=== PATIENT | male | born 1950 | race Caucasian/White ===

== ENCOUNTER 2021-04-08 18:11 | Inpatient (IN) | payer OTHER, MEDICAID, SELFPAY ==
[~2021-04-08] VITALS: Ht 175.3 cm; Wt 94.9 kg
--- NOTE | 2021-04-08 18:15 | NUR ---
Patient to ER bed 7 to gown for evaluation. Side rails up. Report given to ABBY DHILLON.
--- NOTE | 2021-04-08 18:25 | NUR ---
ER DR. BARAJAS AT THE BEDSIDE EXAMINING PT
[2021-04-08 18:26] VITALS: BP_SYST 162
--- NOTE | 2021-04-08 18:27 | NUR ---
PER FAMILY PT HAS HX OF FLUID AROUND THE HEART 1 MONTH AGO AT [place] AND HX CHF.
[2021-04-08] MEDS ORDERED: cefTRIAXone 1 GM IVPB PREMIX 50 ML IV ONE (18:30)
--- NOTE | 2021-04-08 18:30 | NUR ---
PT BIB FAMILY FROM HOME, WORSENING SOB FOR 1 HOUR PRIOR TO ARRIVAL. PRESENTS DIAPHRETIC, ANXIOUS, HYPERTENSIVE, TACHYCARDIC, RESTLESS.
[2021-04-08 18:42] LABS: BASOPHILS # (AUTO) 0.1 K/uL (0.0-0.2); BASOPHILS % (AUTO) 0.5 % (0.0-2.0); EOSINOPHILS # (AUTO) 0.1 K/uL (0.0-0.4); EOSINOPHILS % (AUTO) 0.8 % (0.0-4.0); HEMATOCRIT 42.2 % (36-54); HEMOGLOBIN 13.4 g/dL (14.0-18.0); LYMPHOCYTES % (AUTO) 14.7 % (20.5-51.5); MEAN CORPUSCULAR HEMOGLOBIN 25 pg (27-31); MEAN CORPUSCULAR HGB CONC 32 % (32-36); MEAN CORPUSCULAR VOLUME 79 fL (79.0-98.0); MONOCYTES # (AUTO) 0.9 K/uL (0.0-1.0); MONOCYTES % (AUTO) 6.7 % (1.7-9.3); NEUTROPHILS # (AUTO) 10.5 K/uL (1.8-7.7); NEUTROPHILS % (AUTO) 77.3 % (40.0-70.0); PLATELET COUNT (AUTO) 335 K/uL (130-430); RED BLOOD CELL COUNT(AUTO) 5.32 MIL/uL (4.2-6.2); RED CELL DISTRIBUTION WIDTH 15.9 % (9.0-15.0); WHITE BLOOD COUNT (AUTO) 13.6 K/uL (4.8-10.8)
[2021-04-08 18:48] LABS: CALCIUM 8.7 mg/dL (8.4-11.0); CREATININE 1.26 mg/dL (0.55-1.30); POTASSIUM 4.5 mmol/L (3.5-5.1)
[2021-04-08 18:53] LABS: BILIRUBIN,URINE NEGATIVE (NEGATIVE); BLOOD, URINE 1+ (NEGATIVE); CLARITY/URINE CLEAR (CLEAR); COLOR,URINE YELLOW (YELLOW); GLUCOSE,URINE NEGATIVE (NEGATIVE); KETONES,URINE NEGATIVE (NEGATIVE); LEUKOCYTE ESTERASE ,URINE NEGATIVE (NEGATIVE); NITRITE, URINE NEGATIVE (NEGATIVE); PH,URINE 5.5 (5.0-8.0); PROTEIN URINE 2+ (NEGATIVE); UROBILINOGEN,URINE 0.2 (0.2-1.0)
[2021-04-08 18:54] LABS: ALBUMIN 3.5 g/dL (3.4-4.8); TOTAL BILIRUBIN 0.7 mg/dL (0.0-1.0)
[2021-04-08 19:08] LABS: BACTERIA,URINE FEW /HPF (None Seen); WBC,URINE 0-3 /HPF (0-3)
--- NOTE | 2021-04-08 19:11 | NUR ---
REPORT GIVEN TO ALEJO BARRY FOR CONTINUING CARE
--- NOTE | 2021-04-08 19:28 | NUR ---
CXR at bedside.
[2021-04-08] MEDS ORDERED: LISI-209 PO (19:30)
[2021-04-08] MEDS ORDERED: FURO-149 PO (19:30)
[2021-04-08] MEDS ORDERED: METO50TA7 PO (19:30)
[2021-04-08] MEDS ORDERED: ROSU20TA2 PO (19:30)
[2021-04-08] MEDS ORDERED: POTA20TA83 PO (19:30)
[2021-04-08] MEDS ORDERED: WARF-66 PO (19:30)
--- NOTE | 2021-04-08 19:30 | NUR ---
Medication reconciliation completed with information provided by patient's family (bottles medications). Any prior medication reconciliation on file was reviewed and corrected.
[2021-04-08] MEDS ORDERED: FUROSEMIDE 40 MG/4 ML VIAL IVP ONE (19:45)
[2021-04-08] MEDS ORDERED: LORazepam 2 MG/ML VIAL IVP ONE (19:45)
[2021-04-08] MEDS ORDERED: LORazepam 2 MG/ML VIAL ONE (19:48)
[2021-04-08] MEDS ORDERED: FUROSEMIDE 40 MG/4 ML VIAL ONE (19:49)
--- NOTE | 2021-04-08 19:54 | NUR ---
ER Dr. Amin at bedside examining patient.
--- NOTE | 2021-04-08 20:31 | NUR ---
Change Oxygen Mask 15 L/min to [place] 10 L/min, HR 166 , Oxygen sat 94 %
[2021-04-08 20:35] LABS: INR 3.1 (0.80-1.20)
[2021-04-08 20:46] LABS: PROTHROMBIN TIME 31.4 SECS (9.5-12.5)
--- NOTE | 2021-04-08 21:19 | NUR ---
Patient able to sleep, Oxygen sat 94 %, [place] 10 L/min
[2021-04-08] MEDS ORDERED: DILTIAZEM HCL 25 MG/5 ML VIAL IVP ONE (22:15)
--- NOTE | 2021-04-08 22:39 | NUR ---
After given Diltiazem 25 mg IV - HR 107
--- NOTE | 2021-04-08 23:41 | NUR ---
RT at bedside to set up oxymizer 6-10 L/min- Oxygen sat 92 %
[2021-04-08] MEDS ORDERED: D5/0.45 NS 1,000 ML IV SCH (23:45)
[2021-04-09] VITALS (11 sets, daily range): BP systolic 93–128
--- NOTE | 2021-04-09 00:36 | NUR ---
Patient is sleeping, HR 111, Oxygen sat 95 % , Oxymizer 10 L/Min, FiO2 72 %
--- NOTE | 2021-04-09 01:48 | NUR ---
MRSA swabs collected and sent to lab.
--- NOTE | 2021-04-09 02:08 | NUR ---
Patient will be admitted to care of Dr. Lazar. Admitted to ICU unit. Will go to room 8. Belongings list completed. Complete and up to date summary report printed. SBAR report to be given at bedside with opportunity for questions.
--- NOTE | 2021-04-09 02:35 | NUR ---
ADMISSION NOTE PT RECEIVED FROM ER VIA [facility]. REPORT RECEIVED FROM PRISON CLASSIFICATION COUNSELOR. PT AAOX4, RESPONDING TO VERBAL STIMULI. PT IS PRIMARILY CROATIAN SPEAKING. PT ON 10L OXIMIZER. AFIB ON MONITOR. RAC 20G PATENT AND INTACT. PT DENIES ANY PAIN OR DISCOMFORT AT THIS TIME. SAFETY PRECAUTIONS IN PLACE. WILL CONTINUE TO MONTIOR PT.
--- NOTE | 2021-04-09 03:00 | NUR ---
PT STATES HE IS HUNGRY SNACKS PROVIDED.
--- NOTE | 2021-04-09 05:22 | NUR ---
CONSULTATION CALLED/PAGED DR. GALVEZ [phone] PULMONOLOGY HYPOXIA, INFLUENZA B SPOKE WITH LAWRENCE
--- NOTE | 2021-04-09 05:31 | NUR ---
CONSULTATION CALLED/PAGED DR. ALVAREZ [phone] CARDIOLOGY AFIB SPOKE WITH LAWRENCE
[2021-04-09 07:31] LABS: BASOPHILS % (AUTO) 0.3 % (0.0-2.0); EOSINOPHILS % (AUTO) 0.1 % (0.0-4.0); HEMATOCRIT 41.3 % (36-54); HEMOGLOBIN 13.3 g/dL (14.0-18.0); LYMPHOCYTES # (AUTO) 1.1 K/uL (1.0-5.5); LYMPHOCYTES % (AUTO) 8.3 % (20.5-51.5); MEAN CORPUSCULAR HEMOGLOBIN 26 pg (27-31); MEAN CORPUSCULAR HGB CONC 32 % (32-36); MEAN CORPUSCULAR VOLUME 79 fL (79.0-98.0); MONOCYTES # (AUTO) 0.9 K/uL (0.0-1.0); MONOCYTES % (AUTO) 6.7 % (1.7-9.3); NEUTROPHILS # (AUTO) 11.2 K/uL (1.8-7.7); NEUTROPHILS % (AUTO) 84.6 % (40.0-70.0); PLATELET COUNT (AUTO) 299 K/uL (130-430); RED BLOOD CELL COUNT(AUTO) 5.21 MIL/uL (4.2-6.2); RED CELL DISTRIBUTION WIDTH 15.7 % (9.0-15.0); WHITE BLOOD COUNT (AUTO) 13.2 K/uL (4.8-10.8)
[2021-04-09 09:03] LABS: ALBUMIN 2.8 g/dL (3.4-4.8); CALCIUM 7.8 mg/dL (8.4-11.0); CREATININE 1.29 mg/dL (0.55-1.30); POTASSIUM 4.1 mmol/L (3.5-5.1); TOTAL BILIRUBIN 0.4 mg/dL (0.0-1.0)
[2021-04-09] MEDS ORDERED: METOPROLOL SUCCINATE 50 MG TAB.SR.24H (TOPROL XL) PO ONE (09:15)
[2021-04-09] MEDS: AZITHROMYCIN 500 MG in NS 250 ML IV SCH (09:41)
[2021-04-09 10:36] LABS: INR 2.8 (0.80-1.20); PROTHROMBIN TIME 28.8 SECS (9.5-12.5)
--- NOTE | 2021-04-09 10:41 | NUR ---
Nutrition Update Reza Scale 17 noted. Pt admitted for hypoxia, influenza B, atr fibr, 2 gm Na. Diet: 2 gm Na BMI: 30.9 kg/m2 RD to follow per nutrition care standards.
--- NOTE | 2021-04-09 12:30 | NUR ---
PT TRANSFERRED TO [facility] IN ZERO DISTRESS/PT REPORT GIVEN, ALL QUESTIONS ANSWERED/PT AMBULATED TO WHEELCHAIR WITHOUT ASSIST, PT MD ALERTED DUE TO PT SCANT BLOOD IN SPUTUM PT NERVOUS AND ANXIOUS//MW
--- NOTE | 2021-04-09 13:00 | NUR ---
RECEIVED PT FRON ICU. PT IS AAO, ON O2 10 LI VIA OXIMIZER, VITALS WNO. NO S/S OF PAIN. WILL CONT TO MONITOR.
[2021-04-09] MEDS ORDERED: RIVAROXABAN 10 MG TABLET PO ONE (18:00)
--- NOTE | 2021-04-09 19:15 | NUR ---
OPENING NOTE RECEIVED REPORT FROM DAYSHIFT NURSE. PATIENT RECEIVED LYING IN BED, AWAKE, WATCHING TV, NO S/S OF ACUTE DISTRESS. BREATHING IS EVEN AND UNLABORED, HOB RAISED, OXYMIZER ATTACHED PROPERLY, ON 10L OF OXYGEN. IV SITE IS PATENT, NO SIGNS OF INFILTRATION OR INFECTION NOTED. CALL LIGHT WITH PATIENT. PATIENT DENIES PAIN AT THIS TIME. BED IS LOCKED AND AT LOWEST POSITION. WILL CONTINUE TO MONITOR.
--- NOTE | 2021-04-09 19:24 | NUR ---
pt endorsed to night nurse. all needs met and attended to. pt's hr elevated. when moving. requested pt to go back to bed. endorsed to night nurse to monitor heart rate.
--- NOTE | 2021-04-09 20:01 | NUR ---
PAGED DR KIM GUY AT [phone] SPOKE WITH DORITA.
[2021-04-09] MEDS ORDERED: METOPROLOL SUCCINATE 25 MG TAB.SR.24H (TOPROL XL) PO ONE (20:15)
[2021-04-09] MEDS: FUROSEMIDE 40 MG/4 ML VIAL IVP SCH (20:39)
--- NOTE | 2021-04-09 23:59 | NUR ---
DR GALVEZ AT BEDSIDE ASSESSING PATIENT.
[2021-04-10 00:33] VITALS: BP_SYST 103
[2021-04-10] MEDS ORDERED: ALBUTEROL SULFATE 0.083% 2.5 MG/3 ML VIAL.NEB INH PRN (00:45)
--- NOTE | 2021-04-10 06:11 | NUR ---
CLOSING NOTE PATIENT IN BED, RESTING AT THIS TIME. NO S/S OF ACUTE DISTRESS. BREATHING EVEN AND UNLABORED. HOB RAISED. OXYMIZER ATTACHED PROPERLY, ON 10L OF OXYGEN. IV SITE PATENT, NO SIGNS OF INFILTRATION OR INFECTION NOTED. ALL NEEDS MET THROUGHOUT SHIFT. FALL, SAFETY, AND ISOLATION PRECAUTIONS MAINTAINED THROUGHOUT SHIFT. WILL CONTINUE TO MONITOR UNTIL PATIENT CARE IS ENDORSED TO ONCOMING DAYSHIFT NURSE.
[2021-04-10 07:07] LABS: ALBUMIN 2.8 g/dL (3.4-4.8); CALCIUM 8.4 mg/dL (8.4-11.0); CREATININE 1.12 mg/dL (0.55-1.30); POTASSIUM 3.8 mmol/L (3.5-5.1); TOTAL BILIRUBIN 0.9 mg/dL (0.0-1.0)
--- NOTE | 2021-04-10 07:40 | NUR ---
OPENING NOTE Received report from night nurse. Patient is alert and oriented x4. On oximizer at 10L and tolerating well with no signs of shortness of breath noted. IV is patent, saline locked. Bed locked and in lowest position. Call light within reach. Contact and droplet precautions remain in place. Will continue to monitor.
[2021-04-10 07:48] LABS: BASOPHILS % (AUTO) 0.3 % (0.0-2.0); EOSINOPHILS % (AUTO) 0.4 % (0.0-4.0); HEMATOCRIT 38.9 % (36-54); HEMOGLOBIN 12.2 g/dL (14.0-18.0); LYMPHOCYTES # (AUTO) 1.2 K/uL (1.0-5.5); LYMPHOCYTES % (AUTO) 12.7 % (20.5-51.5); MEAN CORPUSCULAR HEMOGLOBIN 25 pg (27-31); MEAN CORPUSCULAR HGB CONC 31 % (32-36); MEAN CORPUSCULAR VOLUME 79 fL (79.0-98.0); MONOCYTES # (AUTO) 0.8 K/uL (0.0-1.0); MONOCYTES % (AUTO) 8.1 % (1.7-9.3); NEUTROPHILS # (AUTO) 7.4 K/uL (1.8-7.7); NEUTROPHILS % (AUTO) 78.5 % (40.0-70.0); PLATELET COUNT (AUTO) 269 K/uL (130-430); RED CELL DISTRIBUTION WIDTH 15.3 % (9.0-15.0); WHITE BLOOD COUNT (AUTO) 9.4 K/uL (4.8-10.8)
[2021-04-10 08:00] VITALS: BP_SYST 133
[2021-04-10] MEDS: FUROSEMIDE 40 MG/4 ML VIAL IVP SCH ×2 (08:51→21:59)
[2021-04-10] MEDS: AZITHROMYCIN 500 MG in NS 250 ML IV SCH (08:52)
[2021-04-10] MEDS: POTASSIUM CHLORIDE 20 MEQ TAB.PRT.SR PO SCH (08:52)
[2021-04-10] MEDS: ATORVASTATIN 20 MG TABLET PO SCH (08:53)
[2021-04-10] MEDS ORDERED: ROSUVASTATIN CALCIUM 5 MG/TAB (CRESTOR) PO SCH (09:00)
[2021-04-10] MEDS ORDERED: METOPROLOL SUCCINATE 50 MG TAB.SR.24H (TOPROL XL) PO SCH (09:00)
[2021-04-10 09:37] LABS: PROTHROMBIN TIME 20.5 SECS (9.5-12.5)
--- NOTE | 2021-04-10 10:34 | NUR ---
DR. ALVAREZ ROUNDS INFORMED DR. ALVAREZ OF HR FROM 120S- 160S. MD TO SEE PATIENT. SPOKE WITH PATIENT USING ART SALES CONSULTANT. WILL CARRY OUT ANY NEW ORDERS.
[2021-04-10 16:00] VITALS: BP_SYST 111
[2021-04-10] MEDS: WARFARIN SODIUM 3 MG TABLET PO SCH (17:38)
[2021-04-10] MEDS ORDERED: WARFARIN SODIUM 2 MG TABLET PO SCH ×2 (18:00)
--- NOTE | 2021-04-10 18:32 | NUR ---
CLOSING NOTE Patient currently eating dinner in chair. Respirations remain even and non-labored. Patient is on 10 L Oxymizer and tolerating well with no signs of distress. IV site remains patent and saline-locked. Bed in lowest position and call light is within reach. Will endorse to overnight associate RN.
--- NOTE | 2021-04-10 19:30 | NUR ---
Report received from Ester DHILLON. Pt is a/o x4, Turkmen speaking with some Chinese. Calls daughter to translate for him as needed. VS stable, Afib uncontrolled on tele, denies any pain. Ambulates, and up without assist from bed to chair. IV was leaking. Established new iv to left forearm, #20 gauge. Pt tolerated. Lasix iv will be given as ordered. Assuming care for patient.
[2021-04-10 19:51] VITALS: BP_SYST 129
[2021-04-10] MEDS: METOPROLOL SUCCINATE 50 MG TAB.SR.24H (TOPROL XL) PO SCH (21:58)
--- NOTE | 2021-04-10 22:00 | NUR ---
Pt sitting up on chair watching tv. No significant changes. Will continue to monitor.
[2021-04-11 00:40] VITALS: BP_SYST 132
--- NOTE | 2021-04-11 06:58 | NUR ---
Pt is awake, remains uncontrolled afib, denies any pain, no acute distress noted.
[2021-04-11 08:00] VITALS: BP_SYST 123
[2021-04-11 09:12] LABS: INR 1.7 (0.80-1.20); PROTHROMBIN TIME 17.7 SECS (9.5-12.5)
[2021-04-11] MEDS: ATORVASTATIN 20 MG TABLET PO SCH (09:16)
[2021-04-11] MEDS: POTASSIUM CHLORIDE 20 MEQ TAB.PRT.SR PO SCH (09:17)
[2021-04-11] MEDS: AZITHROMYCIN 250 MG TABLET PO SCH (09:17)
[2021-04-11] MEDS: METOPROLOL SUCCINATE 50 MG TAB.SR.24H (TOPROL XL) PO SCH ×2 (09:17→19:53)
[2021-04-11] MEDS: FUROSEMIDE 40 MG/4 ML VIAL IVP SCH ×2 (09:17→19:52)
--- NOTE | 2021-04-11 09:51 | NUR ---
Discharge Planninf: DCP faxed pt referral to [facility] (F [phone]) CM made aware.
--- NOTE | 2021-04-11 10:58 | NUR ---
Call placed to [facility] at 9:30-On hold with [facility] until 10:49- Spoke to Dynamite Packing Machine Operator Nadya-Informed her of need for transfer for Heart Cath ESTEPHANIE- she will have CM call me-none is assisgned yet
[2021-04-11 12:00] VITALS: BP_SYST 127
[2021-04-11 16:00] VITALS: BP_SYST 130
[2021-04-11] MEDS: WARFARIN SODIUM 3 MG TABLET PO SCH (17:42)
--- NOTE | 2021-04-11 18:15 | NUR ---
Note Pt has been sitting up in BS chair most of shift. Pt's O2 at 10L/nc. Tele unit attached and intact all shift. Left forearm IV intact and patent. Pt was checked on q1' and PRN all shift for needs and care. Pt's bed in low position all shift. Pt denies any needs all shift. Call light within reach all shift. Pt has been maintained with safety and isolation precautions all shift.
--- NOTE | 2021-04-11 19:20 | NUR ---
Report received from Bailee DHILLON. Continue Droplet/contact precaution. Pt is awake, alert and oriented x4, Turkmen speaking and speaks very little Kosovan. Calls family to translate for pt. Patient is sitting up on chair, vs stable, remains afib 80-120, a120's non sustained, denies any chest pain or palpitations, no acute distress, 02 sat 98-100 % on 10L 02 oyxmizer. Pt ambulates around the room, skin clean dry and intact, self turn, labs reviewed. Will assume care at this time. Will closely monitor and report to MD for any significant changes.
[2021-04-11 19:39] VITALS: BP_SYST 110
[2021-04-12 01:34] VITALS: BP_SYST 106
--- NOTE | 2021-04-12 06:00 | NUR ---
Pt is awake, sitting up on chair. No distress and denies any pain. Pt remains on 10L oxymizer, 02 sat 99-100%. No significant changes noted. Tidied up room, linen changed, urinal emptied, and fresh ice water given. Pt awaiting for breakfast.
[2021-04-12 06:39] LABS: BASOPHILS % (AUTO) 0.5 % (0.0-2.0); EOSINOPHILS # (AUTO) 0.1 K/uL (0.0-0.4); HEMATOCRIT 40.3 % (36-54); HEMOGLOBIN 13.2 g/dL (14.0-18.0); LYMPHOCYTES # (AUTO) 0.8 K/uL (1.0-5.5); LYMPHOCYTES % (AUTO) 11.2 % (20.5-51.5); MEAN CORPUSCULAR HEMOGLOBIN 26 pg (27-31); MEAN CORPUSCULAR HGB CONC 33 % (32-36); MEAN CORPUSCULAR VOLUME 78 fL (79.0-98.0); MONOCYTES # (AUTO) 0.6 K/uL (0.0-1.0); MONOCYTES % (AUTO) 8.4 % (1.7-9.3); NEUTROPHILS # (AUTO) 5.6 K/uL (1.8-7.7); NEUTROPHILS % (AUTO) 77.9 % (40.0-70.0); PLATELET COUNT (AUTO) 309 K/uL (130-430); RED BLOOD CELL COUNT(AUTO) 5.15 MIL/uL (4.2-6.2); RED CELL DISTRIBUTION WIDTH 14.9 % (9.0-15.0); WHITE BLOOD COUNT (AUTO) 7.2 K/uL (4.8-10.8)
[2021-04-12 06:55] LABS: ALBUMIN 2.9 g/dL (3.4-4.8); CALCIUM 8.4 mg/dL (8.4-11.0); CREATININE 1.11 mg/dL (0.55-1.30); POTASSIUM 3.7 mmol/L (3.5-5.1); TOTAL BILIRUBIN 1.3 mg/dL (0.0-1.0)
[2021-04-12 07:41] LABS: INR 1.6 (0.80-1.20)
[2021-04-12 08:00] VITALS: BP_SYST 124
[2021-04-12] MEDS: AZITHROMYCIN 250 MG TABLET PO SCH (08:44)
[2021-04-12] MEDS: ATORVASTATIN 20 MG TABLET PO SCH (08:44)
[2021-04-12] MEDS: METOPROLOL SUCCINATE 50 MG TAB.SR.24H (TOPROL XL) PO SCH (08:45)
[2021-04-12] MEDS: POTASSIUM CHLORIDE 20 MEQ TAB.PRT.SR PO SCH (08:45)
[2021-04-12] MEDS: FUROSEMIDE 40 MG/4 ML VIAL IVP SCH (08:46)
--- NOTE | 2021-04-12 10:08 | NUR ---
Spoke w/ [place]an-[place] methods analyst data processing- she stated the patient has not been assigned to a patient case coordinator yet-I explained the patient urgently needs a heart cath-order for transfer re-faxed to [facility] [phone]
--- NOTE | 2021-04-12 11:42 | NUR ---
NOTE Pt's O2 brought down from 10L/Oxymizer to 2.5L/Oxymizer - O2 sats at 97%
[2021-04-12 12:00] VITALS: BP_SYST 98
--- NOTE | 2021-04-12 14:52 | NUR ---
DC PLANNING Received call from Marvel Miles ph [phone], updated on pt status. Gave her MD & cardiac cell ph # for MD to MD, has direct nsg station#. States is working on transfer to [facility] for cardiac cath.
--- NOTE | 2021-04-12 15:12 | NUR ---
Note Spoke to Jd ([facility]) - update on pt's status given. LITO Miles stated pt will be transferred to [facility] today - will call back with time, bed/room # and other transfer information. Called pt's daughter Pattie and left message. Waiting for call back. Preeti Moser) was notified as well of transfer from this facility to [facility] today. Pt notified as well. Addendum: 04/12/21 at 1810 by Bailee Couch RN JD Mcknigth [phone]
--- NOTE | 2021-04-12 15:48 | NUR ---
[facility]. Chart Copy and CD given to patient's RN
[2021-04-12 16:00] VITALS: BP_SYST 98
[2021-04-12] MEDS ORDERED: WARFARIN SODIUM 4 MG TABLET PO SCH (18:00)
--- NOTE | 2021-04-12 18:10 | NUR ---
Note Pt sitting up in BS chair all shift eating his meals. Pt on O2 at 2.5L/Oxymizer - sats at 97%. Pt ambulates in room and has steady gait. Pt was checked on q1' and PRN all shift for needs and care. Pt next to bed all shft and uses urinal to void all shift. Call light within reach. Pt denies any SOB/resp distress or chest pain/discomfort all shift.
--- NOTE | 2021-04-12 18:33 | NUR ---
Note Niya ([facility]) called [phone]. Pt will go to room 7556 ([facility]) - [facility] [place]. Report to be given at [phone]. Dr Nadir Lazaro will be the accepting MD at [facility].
[2021-04-12 18:49] VITALS: BP_SYST 98
--- NOTE | 2021-04-12 20:22 | NUR ---
Gave report to nurse Walker from [facility], pt will be going to room 8243
--- NOTE | 2021-04-12 21:11 | NUR ---
D/C Patient Exit Care provided. Patient verbalized understanding. Patient in stable condition, ID band removed. IV catheter removed, intact and dressing applied, no active bleeding. All belongings sent with patient.
== END 2021-04-12 21:11 | disposition short-term general hospital (02) | DRG 194 ==
LOC: SED 18:11 → STU 23:37 → SIC 04-09 00:50 → STU 04-09 14:04
PROVIDERS: ADMIT Internal Medicine; ATTEND Internal Medicine
DX: J18.9 Pneumonia, unspecified organism (principal); I48.20 Chronic atrial fibrillation, unspecified; I11.0 Hypertensive heart disease with heart failure; F41.9 Anxiety disorder, unspecified; J11.1 Influenza due to unidentified influenza virus with other respiratory manifestations; E78.5 Hyperlipidemia, unspecified; I05.0 Rheumatic mitral stenosis; Z20.822 Contact with and (suspected) exposure to COVID-19; I50.9 Heart failure, unspecified; Z86.73 Personal history of transient ischemic attack (TIA), and cerebral infarction without residual deficits; Z79.899 Other long term (current) drug therapy; Z79.01 Long term (current) use of anticoagulants; Z87.891 Personal history of nicotine dependence
CPT/HCPCS: 36415; 71045; 80048; 80053; 81000; 83605; 83880; 84484; 85025; 85379; 85610-TC; 85730-TC; 86710; 87040-TC; 87081; 87086; 93005; 93306; 96365; 96375; 99285; G0378; J0456; J0696; J1940; J2060; J3490; J7050; Q0144; U0003